=== PATIENT | male | born 2000 | race Caucasian/White ===

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

== ENCOUNTER → 2025-04-18 | Outpatient (CLI) | payer OTHER, SELFPAY ==
--- NOTE | 2025-04-18 08:40 | US_ITS ---
PROCEDURE: NEEDLE PLACEMENT 04/18/2025 REASON FOR EXAM: Concern for glenoid labral tear. Pre MRI injection. TECHNIQUE: NEEDLE PLACEMENT, with sonographic guidance COMPARISON: Right shoulder study of 05/06/2024. FINDINGS: Procedure: Following informed consent, and using standard sterile technique, ultrasound guided injection of the right glenohumeral joint was performed via a posterior approach. Under sonographic guidance, placement of a 22 gauge spinal needle was followed by injection of a combination of 10 mL Clariscan, 5 mL 1% lidocaine, 5 mL Isovue-300 and 0.5 mg epinephrine. No complication was encountered, in the patient left the department in good condition without significant complaint. US/Needle Placement IMPRESSION: Successful pre MRI ultrasound-guided injection of the right glenohumeral joint. MRI to follow. Reading Location: [place] [id number]
--- NOTE | 2025-04-18 08:47 | MRI_ITS ---
PROCEDURE: UPPER EXT JT ONLY W/CONTRAST 04/18/2025 REASON FOR EXAM: PAIN AND LABRUM LESION RT TECHNIQUE: UPPER EXT JT ONLY W/CONTRAST. Right shoulder MR arthrogram. COMPARISON: Right shoulder series of 05/06/2024. FINDINGS: No rotator cuff tear is seen. No acute osseous signal changes seen. No significant arthritic process is evident. Intra-articular contrast is noted. No glenoid labral tear is seen. The long head of the biceps tendon appears intact. MRI/Upper Ext Jt Only W/Contrast IMPRESSION: No glenoid labral tear is identified Reading Location: [place] [id number]
--- OUTSIDE RECORDS SUMMARY | 2025-04-18 08:49 | XMS RPT_ITS | CCD ---
Author Organization [facility] Care Team Providers Care Boat Painter Name Role Phone PHILIPPE OBRIEN, YORDY [place] Unavailable [phone] KHALIF MATHEWS MD Unavailable [phone] GRATE TOM VILCHIS Unavailable Unavailable Unavailable Unavailable EDA PAEZ MD Consulting Unavailable RED PHAM DC Admitting Unavailable RED PHAM DC Primary Care Unavailable RED PHAM DC Attending Unavailable PROVIDER, UNKNOWN Consulting Unavailable PROVIDER, UNKNOWN Consulting Unavailable PROVIDER, UNKNOWN Consulting Unavailable Hussein OBRIEN, Herve Attending Provider [phone] Calin Hayden Attending Unavailable Herve Savage Attending Unavailable Herve Savage Attending Unavailable Herve Savage Attending Unavailable Care Physician, No Primary Primary Care Unava ilable Herve Savage Referring Unavailable Herve Savage Attending Unavailable Medications Current Medications Medication Drug Class(es) Dates Sig (Normalized) Sig (Original) [place] (Nk) (1 source) Start: 05-06-2024 [place] (Nk) A ctive May 06, 2024 12:00am Completed/Discontinued Medications Medication Drug Class(es) Dates Sig (Normalized) Sig (Original) amoxicillin 500 mg oral capsule (2 sources) Penicillin-class Antibacterial Start: 02-20-2016 End: 03-01-2016 take 1 tablet by mouth three times daily AMOXICILLIN, 500MG (Oral Capsule) ; 1 (one) Tablet three times daily for 10 days Quantity: 30 {Capsule} Refills: 0 Ordered: 10-Mar-2016 MD KHALIF MTAHEWS Start: 20-Feb-2016 End: 01-Mar-2016 Status: Inactive Comments: medication to be dispensed in office Comment on above: medication to be dis pensed in office dexamethasone 1 mg/ml / neomycin 3.5 mg/ml / polymyxin b 03932 unt/ml ophthalmic suspension (1 source) Aminoglycoside Antibacterial, Polymyxin-class Antibacterial, Corticosteroid Start: 10-26-2017 End: 05-06-2024 Neomycin-Polymyxi n B-Dexameth 5 ML drops,suspension Discontinued 2 - 3 NMA Left Ear TWICE A DAY October 26, 2017 1:00am May 06, 2024 2:28pm fluticasone propionate 0.05 mg/actuat metered dose nasal spray (2 sources) Corticosteroid Start: 03-12-2016 End: 10-13-2020 Fluticasone Propionate 50 MCG/ACT Nasal Suspension ; 2 (two) spray(s) at bedtime for 30 days Quantity: 1 {Bottle} Refills: 4 Ordered: 13-Oct-2020 DENG CABAN Start: 12-Mar-2016 End: 13-Oct-2020 Status: Inactive hydrocortisone 10 mg/ml / neomycin 3.5 mg/ml / polymyxin b 26231 unt/ml otic suspension (2 sources) Aminoglycoside Antibacterial, Polymyxin-class Antibacterial, Corticosteroid Start: 02-20-2016 End: 02-27-2016 NEOMYCIN-POLYMYXI N-HC, 3.5-21902-4 (Otic Suspension) ; 3 (three) drop(s) three times daily in left canal for 7 days Quantity: 1 {Bottle} Refills: 0 Ordered: 10-Mar-2016 MD KHALIF MATHEWS Start: 20-Feb-2016 End: 27-Feb-2016 Status: Inactive Problems Active Problems Problem Classification Problem Date Documented Da te Episodic/Chronic Abdominal pain (1 source) Right upper quadrant pain; Translations: [Right upper quadrant pain] 06-08-2023 Episodic Cardiac dysrhythmias (4 sources) Intermittent palpitations; Translations: [Palpitations] 10-13-2020 Episodic Other ear and sense organ disorders (4 sources) Acute actinic otitis externa; Translations: [Acute actinic otitis externa, left ear] 03-12-2016 Episodic Other non-traumatic joint disorders (7 sources) Pain in right shoulder; Translations: [Right shoulder pain] Onset: 12-24-2023 Episodic Other non-traumatic joint disorders (2 sources) Disorder of shoulder; Translations: [Other specified joint disorders, right shoulder] 05-13-2024 Episodic Other non-traumatic joint disorders (2 sources) Other specified joint disorders, right shoulder; Translations: [Other specified joint disorders, right shoulder] Onset: 04-07-2025 Episodic Otitis media and related conditions (6 sources) Acute left otitis media; Translations: [Otitis media, unspecified, left ear] 03-12-2016 Episodic Comment on above: now healed Sprains and strains (4 sources) Glenoid labrum tear; Translations: [Superior glenoid labrum lesion of right shoulder, initial encounter] Onset: 04-07-2025 04-07-2025 Episodic Unclassified (2 sources) Unspecified Diagnosis 03-12-2016 Past or Other Problems Problem Classification Problem Date Documented Da te Episodic/Chronic Otitis media and related conditions (2 sources) Otitis media and related conditions 03-12-2016 Unclassified (2 sources) !Patient notification of lab results - Dr. Paez. The test(s) that you had done were/was a heart monitor (Fortunately, this did not demonstrate any dangerous rhythms or other concerning findings. However, if your symptoms persist, you may want to see a livestock yard supervisor.). You should call our office if you have any questions. 10-30-2020 Unclassified (2 sources) Chest Pain, 3-19 years - Symptoms include chest pain and palpitations, while symptoms do not include difficulty breathing or dizziness. The pain is located in the left anterior chest. The pain radiates to the left arm. The pain is described as sharp. Onset was 3 month(s) ago. 10-13-2020 Unclassified (2 sources) Ear Discharge - The history today is reported by the patient and the patient's mother. Symptoms include ear discharge and ear pain. Symptoms are located in the left ear. Onset was 2 month(s) ago. 02-20-2016 Results Test Name Value Interpretation Reference Range Facil ity Orthopedic Visit Reporton Orthopedic Visit Report [facility] [address] [place] [address] OFFICE VISIT Date of Service: 04/07/25 MR#: [id number] Acct: [id number] Name: AWAIS DOYLE Rep #: [id number] : 2000 Provider: Dr. Herve price MD Age/Sex: 24/M Location: [facility] Status: Signed Intake Vital Signs 05/06/24 14:26 04/07/25 13:54 Height 5 ft 10 in 5 ft 10 in Weight: 155 lb 150 lb BMI 22.2 21.5 Intake Visit Reasons: RIGHT SHOULDER Chief Complaint: Right shoulder pain Accompanied by: Self Is patient in pain?: Yes Pain scale (1-10): 4 Allergies No Known Allergies Allergy (Verified 04/07/25 13:58) Medications ???Medication ???Instructions ???Recorded ???Confirmed ???Type NK 05/06/24 04/07/25 History Have you fallen in the past year?: No PFSH Medical History Tear of right glenoid labrum Impingement of right shoulder Right shoulder pain Surgical History S/P ear surgery Social History Smoking Status: Never smoker HPI RIGHT SHOULDER Details: This documentation accurately reflects the service provided and the decisions made by me, Dr. Herve Savage MD 04/07/25 1333. Part of today???s visit was documented by [ ], acting as scribe. AWAIS DOYLE is a 24 year old M here today for follow-up from a right shoulder pain 1 year follow-up from a cortisone injection. Previous noncontrast MRI described a circumferential labral tear. 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 Feels a little weak and still stiff and sore. No instability sensations now past history of a dislocation or injury. Coding Level of Care Code Off vis,est,level 4 Diagnoses Impingement of right shoulder M25.811 Right shoulder pain M25.511 Tear of right glenoid labrum S43.431A Assessment and Plan Assessment and Plan (1) Impingement of right shoulder: Status: Acute Plan: 24 year old M here today for follow-up from a right shoulder pain 1 year follow-up from a cortisone injection. Previous noncontrast MRI described a circumferential labral tear. I have overall low suspicion of the labrum tear although could be a SLAP tear or other problems about the shoulder but given the last MRI was low quality was noncontrast and described a circumferential labral tear in the absence of an injury, I will go ahead and order a new MRI arthrogram of the shoulder to be done at [facility] and follow patient up after that. In the meantime strengthening of the shoulder and activities as tolerated. The patient understands no further questions or concerns. (2) Right shoulder pain: Status: Acute (3) Tear of right glenoid labrum: Status: Acute Orders: Orders Arthrogram Shoulder w/ MRI Today M25.511 - Pain in right shoulder, M25.811 - Other specified joint disorders, right shoulder, S43.431A - Superior glenoid labrum lesion of right shoulder, initial encounter Clinical Quality Measures Falls Risk Screening/Assistive Devices Have you fallen in the past year?: No Ortho Exam General General: Yes no acute distress Neurologic: Yes alert and Yes oriented x3 Psychologic: Yes reasonable and appropriate Right Shoulder Skin/Wound: Yes CDI, No ecchymosis, No erythema and No swelling Testing: Positive Hawkin's, Neer's, TTP Biceps, AROM-Forward Elevation 0-180, AROM-External Rotation at side 0-60 and belly press normal; Negative Speed's, TTP AC Joint, Drop Arm, Apprehension Test, Sulcus Sign, translation, empty can, Load and Shift, jerk, Henderson, cross arm, scapular symmetry or scapular winging Internal Rotation: L3 SHOULDER: normal motor and sens to ax nerve, and MRU and AIN/PIN Forward elevation and external rotation both strong 01/16. 04/07/25 1423 Date Herve Weems Signature: Date (if applicable) CC: Normal [facility] Orthopedic Visit Reporton Orthopedic Visit Report [facility] [address] [place] [address] [id number] OFFICE VISIT Date of Service: 05/13/24 MR#: [id number] Acct: [id number] Name: AWAIS DOYLE Rep #: [id number] : 2000 Provider: Dr. Herve price MD Age/Sex: 23/M Location: [facility] Status: Signed with Addenda ADDENDUM by TIFFANIE Huddleston on 05/13/24 at 1412 Office Procedure Documentation entered by Benita Huddleston MA 05/13/24 14:12: Ortho Injections Injections Yes Subacromial Injection Right Is this a patient provided medication?: No Details: Obtained consent for injection. Under sterile conditions, injected the patients Right Shoulder with 2ml Kenalog and 4ml Bupivacaine. The patient tolerated the injection well without any noted complication. Patient should call our office if redness develops, pain worsens or if they have any concerns. Office Meds Kenalog 40 mg/mL suspension for injection Performing Provider: Herve Savage MD Performing Location: [facility] Administered by: Herve Savage MD on 05/13/24 14:11 Dose Route Admin Location Dispensed Lot Number Expiration Date NDC Man ufacturer 80 mg intra-articular Right Shoulder 2 mL [id number] 12/13/25 6277-3242-51 [facility] Date cc: * Signed Intake Vital Signs 05/06/24 14:26 Height 5 ft 10 in Weight: 155 lb BMI 22.2 Intake Visit Reasons: RIGHT SHOULDER Chief Complaint: Right shoulder Accompanied by: Self Is patient in pain?: Yes Allergies No Known Allergies Allergy (Verified 05/13/24 14:01) Medications ???Medication ???Instructions ???Recorded ???Confirmed ???Type NK 05/06/24 05/13/24 History PFSH Medical History (Updated 05/13/24 @ 14:08 by Herve Savage MD) Impingement of right shoulder Right shoulder pain Surgical History S/P ear surgery Social History Smoking Status: Never smoker HPI RIGHT SHOULDER Details: This documentation accurately reflects the service provided and the decisions made by me, Dr. Herve Savage MD 05/13/24 8106. Part of today???s visit was documented by [ ], acting as scribe. AWAIS DOYLE is a 23 year old M here today for follow-up right shoulder pain. The patient did not have any instability episodes has some mild shoulder pain. The baseball tournament was not overly successful they did not want again and he has a little bit more increased shoulder pain it is worse in the mornings. He is interested in a cortisone injection he does not have any instability sensations and no history of dislocations. Ortho Exam General General: Yes no acute distress Neurologic: Yes alert and Yes oriented x3 Psychologic: Yes reasonable and appropriate Right Shoulder Skin/Wound: Yes CDI, No ecchymosis, No erythema and No swelling Testing: Positive Hawkin's, Neer's, TTP Biceps, AROM-Forward Elevation 0-180, AROM-External Rotation at side 0-60 and belly press normal; Negative Speed's, TTP AC Joint, Drop Arm, Apprehension Test, Sulcus Sign, translation, empty can, Load and Shift, jerk, Henderson, cross arm, scapular symmetry or scapular winging Internal Rotation: L3 SHOULDER: normal motor and sens to ax nerve, and MRU and AIN/PIN Forward elevation and external rotation both strong 5/5. Supplemental Info I was able to review the MRI on spectra despite the radiologist comment of a massive circumferential labral tear I see no evidence of that. Coding Level of Care Code Attention Demarcus Diagnoses Right shoulder pain M25.511 Impingement of right shoulder M25.811 Comment 10305 and CPT inject major joint Assessment and Plan Assessment and Plan (1) Right shoulder pain: Status: Acute Plan: 31-year-old man with a pain from an overuse injury of the shoulder consistent with pendulum syndrome/rotator cuff tendinitis and bursitis of the shoulder. No evidence of shoulder instability and I do not appreciate a labral tear on the MRI. Patient counseled on diagnosis prognosis different treatment options again and he would like to go ahead with a cortisone injection follow-up in 6 weeks time or as needed. The patient understands no further questions or concerns. Pros and cons risks and benefits of a right shoulder subacromial steroid injection were discussed. Patient wished to proceed. Risks include but not limited to infection, pain, stiffness, damage to other structures, neurovascular injury, wear further tear of the tendon and other structures such as the skin, bleeding, allergic reaction, acute flare reaction and other risks. Obtained informed consent for injection. Posterior lateral aspect of the shoulder was prepped with chlorhex (more content not included)... Normal [facility] Orthopedic Visit Reporton Orthopedic Visit Report [facility] [address] [place] [address] [address] [place] [address] OFFICE VISIT Date of Service: 05/06/24 MR#: [id number] Acct: [id number] Name: AWAIS DOYLE Rep #: [id number] : 2000 Provider: Dr. Herve price MD Age/Sex: 23/M Location: [facility] Status: Signed Intake Vital Signs 06/08/23 14:24 05/06/24 14:26 Height 5 ft 10 in 5 ft 10 in Weight: 148 lb 155 lb BMI 21.2 22.2 BP 121/73 H Blood Pressure Location Lt brachial Position Sitting Pulse 75 Pulse Source Monitor Temp 98.6 F Temp Source Temporal Pulse Oximetry (%) 100 Intake Visit Reasons: RIGHT SHOULDER Chief Complaint: Right shoulder Is patient in pain?: No Allergies No Known Allergies Allergy (Verified 05/06/24 14:28) Medications ???Medication ???Instructions ???Recorded ???Confirmed ???Type NK 05/06/24 History PFSH Medical History Right shoulder pain Surgical History (Updated 05/06/24 @ 14:29 by Shavonne Merrill) S/P ear surgery Social History Smoking Status: Never smoker HPI RIGHT SHOULDER Details: This documentation accurately reflects the service provided and the decisions made by me, Dr. Herve Savage MD 05/06/24 4257. Part of today???s visit was documented by [ ], acting as scribe. AWAIS DOYLE is a 23 year old M here today for right shoulder pain. 12 years of shoulder pain, lateral and superior location, no surgery. no dislocation or instability sensation. 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 RHD. level of the pain /10. feels weak. palliative - nothing. no night time symptoms. [place] - tried rehab 1.5 years ago, no help. no medications or injections. Supplemental Info MRI from [facility] obtained on 12/24/2023 indication chronic right shoulder pain MRI shoulder right without contrast Radiologist impression 1. Os acromiale. Edema seen within the os acromiale and the acromion 2. Infraspinatus interstitial tendon tear. 3. Anterior, superior and posterior labral tears. 4. Superior glenohumeral ligament possible sprain 5 edema in the acromioclavicular joint without joint space widening, correlate for sprain I do not have access to the actual images of the MRI but the patient as well as the office staff will try to get the disc X-rays 4 views of the right shoulder obtained today. This shows no acute abnormalities. Glenohumeral joint space well-maintained. There is evidence of an os acromiale. There is mild sclerosis of the greater tuberosity. Coding Level of Care Code Off vis,new,level 3 Diagnoses Right shoulder pain M25.511 Assessment and Plan Assessment and Plan (1) Right shoulder pain: Status: Acute Plan: AWAIS DOYLE is a 23 year old M here today for right shoulder pain. No evidence clinically or through history of instability to account for the massive labral tear that the radiologist describing. I will try to have the office staff as well as the patient bring in the MRI disc so I can look at that with my own eyes. I think that some rotator cuff wear and tear or small interstitial tear could be causing the pain he seems to have no pain from the os acromiale. Recommend and discussed rest ice anti-inflammatories activity modification subacromial cortisone injections and physical therapy. He would rather hold off on the injection for now he is playing in a baseball tournament this weekend. He will come back next week for the injection and with the disc. Orders: Orders Shoulder min 2 Views Today M25.511 - Pain in right shoulder Ortho Exam General General: Yes no acute distress Neurologic: Yes alert and Yes oriented x3 Psychologic: Yes reasonable and appropriate Right Shoulder Skin/Wound: Yes CDI, No ecchymosis, No erythema and No swelling Testing: Positive Hawkin's, Neer's, TTP Biceps, AROM-Forward Elevation 0-180, AROM-External Rotation at side 0-60 and belly press normal; Negative Speed's, TTP AC Joint, Drop Arm, Apprehension Test, Sulcus Sign, translation, empty can, Load and Shift, jerk, Henderson, cross arm, scapular symmetry or scapular winging Internal Rotation: L3 SHOULDER: normal motor and sens to ax nerve, and MRU and AIN/PIN Forward elevation and external rotation both strong 5/5. 05/06/24 1454 Date Herve Savage MD Cosigner Signature: Date (if applicable) CC: Normal [facility] Shoulder min 2 Viewson 05-06 Shoulder min 2 Views [facility] [address] [place] [address] Shoulder min 2 Views MR#: [id number] Acct: [id number] Name: AWAIS DOYLE Rep #: [id number] : 2000 M 23 From: Walt Duncan MD PCP: Status: DEP AMB Study: Shoulder min 2 Views Date of Exam: 05/06/24 Exam# [id number] Ordering [place]: [place] [id number] STUDY: X-RAY - RIGHT SHOULDER REASON FOR EXAM: Male, 23 years old. Pain. TECHNIQUE: 4 view(s) of the shoulder. COMPARISON: None. FINDINGS: Normal glenohumeral articulation. Normal acromioclavicular joint. Os acromion, a normal variant. Normal humeral head and visualized proximal humerus. The soft tissue structures are normal. Normal visualized pulmonary apex. RAD/Shoulder min 2 Views IMPRESSION: Os acromion, a normal variant. No other abnormality. Electronically Signed: Walt Duncan MD at 11:06 EDT , CC: Dr. Herve Savage MD Ditch Repairer: Signed Normal [facility] MR SHOULDER W/O RTon 024 MR SHOULDER W/O RT [address] [address] Patient: AWAIS DOYLE Phone#: : 2000 Age: 22 Gender: M Pt. Type: Out Account: [id number] Location: Ordering: [facility] Exam Date: 12/24/2023/10:01 Family Phys: EDA PHILIPPE Charge Code: 548114 Physician: Perkins Order #: [id number] Dose#: PROCEDURE: MRI SHOULDER RT WITHOUT CONTRAST COMPARISON: None. INDICATIONS: Chronic right shoulder pain TECHNIQUE: A variety of imaging planes and parameters were utilized for visualization of suspected pathology. Images were performed without contrast. FINDINGS: ROTATOR CUFF REGION CUFF TENDONS: There is interstitial tendon tear of the infraspinous innate is tendon, series 4, image 15. Supraspinatus in and subscapularis tendons are intact. CUFF MUSCLES: Normal appearing muscles. DELTOID: Normal. No significant atrophy or tear. LONG BICEPS TENDON: Normal. No abnormal signal, attrition, or tear. LABRUM/BICEPS ANCHOR SUPERIOR: Abnormal signal in the superior labrum suggesting tear, series 5, image 16. Anterior superior labral tear, series 4, image 21 ANTERIOR/INFERIOR: Normal. No visible tear or attrition. POSTERIOR: Posterior superior labral tear, series 4, image 19. CAPSULE ANTERIOR/INFERIOR: Middle glenohumeral ligament is and, suggesting chronic injury. There is edema at the anterior superior capsule adjacent to the superior glenohumeral ligament indicate sprain. POSTERIOR: Normal. No visible capsular laxity or thickening. AC JOINT REGION AC JOINT: Acromioclavicular joint space measures at the upper limits of normal, 0.8 cm. There is edema within the joint space. AC LIGAMENTS: Normal acromioclavicular ligament. CC LIGAMENTS: Normal coracoclavicular ligaments. Normal coracoclavicular distance. ACROMION: Type 2 configuration. There is an os acromial. There is edema in the os and distal acromion. SUBACROMIAL BURSA: Normal. No significant effusion. HYALINE CARTILAGE: Normal. No visible cartilage narrowing or focal defect. OTHER BONES: There is edema in the glenoid and base of the coracoid process. OTHER OBSERVATIONS: Negative. No other significant findings or glenohumeral effusion. Continued Report - Page 2 of 2 Patient: AWAIS DOYLE Phone#: : 2000 Age: 22 Gender: M Pt. Type: Out Account: [id number] Location: Ordering: [facility] Exam Date: 12/24/2023/10:01 Family Phys: EDA BARNARDD Charge Code: 054170 Physician: Perkins Order #: [id number] Dose#: CONCLUSION: 1. Os acromial. Edema seen within the os acromial and the acromial 2. Infraspinatus interstitial tendon tear 3. Anterior, superior and posterior labral tears. 4. Superior glenohumeral ligament possible sprain 5. Edema in the acromioclavicular joint without joint space widening, correlate for sprain. Dictated by: Graciela Villafuerte MD on 12/28/2023 at 14:34 Approved by: Graciela Villafuerte MD on 12/28/2023 at 15:37 Normal [facility] Vital Signs Date Time Vital Sign Value Performing Clinician Facility 04-07-2025 13:54-0400 Body height 177.8 cm Herve Savage MD Work Phone: [facility] 04-07-2025 13:54-0400 Body mass index (BMI) [Ratio] 21.5 kg/m2 Herve Savage MD Work Phone: [facility] 04-07-2025 13:54-0400 Body weight 68.03 kg Herve Savage MD Work Phone: [facility] 10-13-2020 09:33-0500 Body height 172.72 cm TOM GRATE DENG [facility], [employer] [facility] [employer] [facility] 10-13-2020 09:33-0500 Body mass index (BMI) [Percentile] Per age and sex 64 % [facility]OM [facility]ATE DENG [facility], [employer] 10-13-2020 09:33-0500 Body mass index (BMI) [Ratio] 22.81 kg/m2 TOM GRATE DENG [facility] [employer] [facility], [employer] [facility], [employer] 10-13-2020 09:33-0500 Body surface area Derived from formula 1.81 m2 TOM GRATE DENG [facility] [employer] [facility], [employer] [facility] 10-13-2020 09:33-0500 Body weight 68.04 kg [facility]OM GRATE DENG [facility], [employer] [facility] [employer] [facility] 10-13-2020 09:33-0500 Diastolic blood pressure 68 mm[Hg] TOM GRATE DENG [facility] [employer] [facility] [employer] [facility], [employer] Comment on above: Patient Position: Sitting; Cuff Location : Left Arm; Cuff Size: Standard 10-13-2020 09:33-0500 Heart rate 64 /min TOM GRATE DENG [facility] [employer] [facility] [employer] [facility] [employer] Comment on above: Pattern: Regular 10-13-2020 09:33-0500 Systolic blood pressure 118 mm[Hg] TOM GRATE DENG [facility] [employer] [facility] [employer] [facility] [employer]. Comment on above: Patient Position: Sitting; Cuff Location : Left Arm; Cuff Size: Standard 03-12-2016 10:55-0400 Body height 229.24 cm YORDY PAEZ MD Work Phone: [facility] [facility], [employer]. 03-12-2016 10:55-0400 Body mass index (BMI) [Percentile] Per age and sex 0 % YORDY PAEZ MD Work Phone: [employer]. 03-12-2016 10:55-0400 Body mass index (BMI) [Ratio] 8.29 kg/m2 YORDY APEZ MD Work Phone: [employer]. 03-12-2016 10:55-0400 Body surface area Derived from formula 1.84 m2 YORDY PAEZ MD Work Phone: [employer]. 03-12-2016 10:55-0400 Body temperature 98 [degF] YORDY PAEZ MD Work Phone: [employer]. Comment on above: Method: Oral 03-12-2016 10:55-0400 Body weight 43.55 kg YORDY PAEZ MD Work Phone: [employer]. 03-12-2016 10:55-0400 Diastolic blood pressure 55 mm[Hg] YORDY PAEZ MD Work Phone: [employer]. Comment on above: Patient Position: Sitting; Cuff Location : Left Arm; Cuff Size: Standard 03-12-2016 10:55-0400 Heart rate 61 /min YORDY PAEZ MD Work Phone: [employer]. Comment on above: Pattern: Regular 03-12-2016 10:55-0400 Systolic blood pressure 90 mm[Hg] YORDY PAEZ MD Work Phone: [employer] Comment on above: Patient Position: Sitting; Cuff Location : Left Arm; Cuff Size: Standard 02-20-2016 11:12-0400 Body height 151.13 cm YORDY PAEZ MD Work Phone: [employer]. 02-20-2016 11:12-0400 Body mass index (BMI) [Percentile] Per age and sex 52 % YORDY PAEZ MD Work Phone: [employer]. 02-20-2016 11:12-0400 Body mass index (BMI) [Ratio] 18.67 kg/m2 YORDY PAEZ MD Work Phone: [employer]. 02-20-2016 11:12-0400 Body surface area Derived from formula 1.35 m2 YORDY PAEZ MD Work Phone: [employer]. 02-20-2016 11:12-0400 Body temperature 98.1 [degF] YORDY PAEZ MD Work Phone: [employer]. Comment on above: Method: Oral 02-20-2016 11:12-0400 Body weight 42.64 kg YORDY PAEZ MD Work Phone: [employer]. 02-20-2016 11:12-0400 Diastolic blood pressure 63 mm[Hg] YORDY PAEZ MD Work Phone: [employer] Comment on above: Patient Position: Sitting; Cuff Location : Left Arm; Cuff Size: Standard 02-20-2016 11:12-0400 Heart rate 77 /min YORDY PAEZ MD Work Phone: [employer] Comment on above: Pattern: Regular 02-20-2016 11:12-0400 Systolic blood pressure 103 mm[Hg] YORDY PAEZ MD Work Phone: [employer]. Comment on above: Patient Position: Sitting; Cuff Location : Left Arm; Cuff Size: Standard Encounters Encounter Date Encounter Type Care Provider Facility Start: [facility] Start: 04-07-2025 End: 04-07-[address] Herve Savage MD -[facility] Work Phone: Start: 04-07-2025 End: 04-07-2025 ambulatory Herve Savage -[facility] Start: 05-13-2024 End: 05-13-2024 ambulatory Herve Savage Facility:[facility] Start: 05-06-2024 End: 05-06-2024 ambulatory Herve Savage Facility:[facility] Start: 12-24-2023 End: 12-24-2023 ambulatory EDA PAEZ [facility] Start: 10-30-2020 End: 10-30-2020 Results Review YORDY PAEZ MD Work Phone: [employer] Start: 10-13-2020 End: 10-13-2020 Office outpatient visit 15 minutes YORDY PEAZ MD Work Phone: [employer] Start: 11-03-2017 End: 11-03-2017 Historical Summary YORDY PAEZ MD Work Phone: [employer] Start: 03-12-2016 End: 03-12-2016 Office outpatient visit 15 minutes YORDY PAEZ MD Work Phone: [employer] Start: 02-20-2016 End: 02-20-2016 Historical Summary YORDY PAEZ MD Work Phone: [employer] Start: 02-20-2016 End: 02-20-2016 Office outpatient visit 10 minutes YORDY PAEZ MD Work Phone: [employer] Procedures Date Procedure Procedure Detail Performing Clinician Start: 10-13-2020 End: 10-13-2020 Dischrg meds reconciled w/current med list YORDY PAEZ MD Work Phone: Start: 11-02-2017 End: 11-02-2017 L tympanoplasty, mastoidectomy TOM CABAN RN Comment on above: Chip Veliz, ENT Start: 03-12-2016 End: 03-12-2016 Tympanometry KHALIF MATHEWS MD Work Phone: Start: 02-20-2016 End: 02-20-2016 Tympanometry KHALIF MATHEWS MD Work Phone: Plan of Treatment Date Care Activity Detail Author Start: 10-13-2020 Xtrnl pt activated e cg rec dwnld 30 days EVENT MONITORING AND ANYALYSIS (65246) Start: 13-Oct-2020 Intent [employer] Start: 02-20-2016 Patient Education [employer]; [employer]. MR Shoulder Arthrogram [facility] Immunizations Immunization Date Immunization Notes Care Provider Fa [facility] 01-16-2014 measles, mumps and rubella virus vaccine YORDY PAEZ MD Work Phone: [facility] [employer]; [employer]. 11-27-2004 DTaP-hepatitis B and poliovirus vaccine YORDY PAEZ MD Work Phone: [employer]. 07-03-2004 measles, mumps and rubella virus vaccine YORDY PAEZ MD Work Phone: [employer]; [employer]. 06-19-2004 DTaP-hepatitis B and poliovirus vaccine YORDY PAEZ MD Work Phone: [employer]. 06-19-2004 haemophilus influenz ae type b vaccine, HbOC conjugate YORDY PAEZ MD Work Phone: [facility] 05-03-2003 diphtheria, tetanus toxoids and acellular pertussis vaccine YORDY PAEZ MD Work Phone: [facility] 05-03-2003 haemophilus influenz ae type b conjugate and Hepatitis B vaccine YORDY PAEZ MD Work Phone: [facility] [employer] [facility] [employer] 05-03-2003 poliovirus vaccine, inactivated YORDY PAEZ MD Work Phone: [facility] [employer] [facility]; [facility] Payers Date Payer Category Payer Unknown [id number] 2024 Self-pay 2002 Unknown [id number] [id number] [id number] Self-pay . Unknown [id number] Unknown Unknown 0 Unknown [id number] [id number] [id number] Unknown [id number] [id number] [id number] Unknown [id number] 2.16.8 [id number] Unknown [id number] 2.16.8 [id number] Unknown [id number] 2.16.8 [id number] Social History Date Type Detail Facility Alcohol Use: Alcohol Use: ; N o Alcohol Use. [facility] [employer] [facility] [employer] Most Recent Primary Occupation Most Recent Primary Occupation [facility] [employer] [facility]; [facility] [employer] [facility] Tobacco use: Tobacco use: ; N ever smoker. [facility] [employer] [employer] [facility] [employer]. Start: 2002 Male [facility] Start: 06-08-2023 Never smoked tobacco [facility] Evaluation note Note Date & Type Note Facility Evaluation note Diagnosis Onset Date Resolution Impingement of right shoulder acute April 07, 2025 1:54pm Right shoulder pain acute April 07, 2025 1:54pm Tear of right glenoid labrum acute April 07, 2025 1:54pm [facility] Work Phone: Reason for referral (narrative) Note Date & Type Note Facility Reason for referral (narrative) No reason for referral information available [facility] Work Phone: Family History No Family History Records Found Father Status:Active Comments:Sulema carrasco Father Status:Active Comments:Sulema carrasco Summary Purpose Advance Directives No Advanced Directives Records FoundNo Advanced Directives Records Found Chief Complaint and Reason for Visit Chief Complaint Admit Date RIGHT SHOULDER April 07, 2025 1:54 pm Reason for Visit Admit Date Impingement of right shoulder April 07, 2025 1:54pm Right shoulder pain April 07, 2025 1:54 pm Tear of right glenoid labrum April 07, 2025 1:54pm Additional Source Comments (unrecognized sect ion and content) No Status Records FoundNo Status Records Found INFORMATION SOURCE (unrecogn ized section and content) DATE CREATED AUTHOR 12/29/2023 [facility] DATE CREATED AUTHOR AUTHOR'S ORGANIZ ATION 04/16/2025 [facility] Care Teams (unrecognized sec tion and content) Team Status: Active Member Role/Relationship Status Dates Dr. Eda Paez MD Family Provider Active Team Status: Inactive Member Role/Relationship Status Dates Herve Savage MD Attending Provider Active St art: April 07, 2025 End: April 07, 2025 Goals (unrecognized section and content) Goals may be documented in a n alternate section FOR RECORDS PERTAINING TO PATIENTS WHO ARE OR HAVE BEEN ENROLLED IN A CHEMICAL DEPENDENCY/SUBSTANCEABUSE PROGRAM, SOME INFORMATION MAY BE OMITTED. This clinical summary was aggregated from multiple sources. Caution should be exercised in using it in the provision of clinical care. This summary normalizes information from multiple sources, and as a consequence, information in this document may materially change the coding, format and clinical context of patient data. In addition, data may be omitted in some cases. CLINICAL DECISIONS SHOULD BE BASED ON THE PRIMARY CLINICAL RECORDS. [facility] [employer]. provides no warranty or guarantee of the accuracy or completeness of information in this document.
[2025-04-18] MEDS: Gadoterate Meglumine Diluted 10 ML, Iopamidol 5 ML, Lidocaine 1% (20 ml mdv) 5 ML, Epin... INTRAARTIC (09:52)
== END | disposition home or self-care (01) ==
PROVIDERS: Referring Provider Orthopaedic Surgery Sports Medicine; Visit Provider Orthopaedic Surgery Sports Medicine
DX: M25.511 Pain in right shoulder (principal)
CPT/HCPCS: 73222; 76942; Q9967